=== PATIENT | female | born 1995 | race Caucasian/White ===

== ENCOUNTER 2017-05-04 07:59 | Emergency (ER) | payer MEDICAID ==
[2017-05-04] MEDS ORDERED: KETOROLAC TROMETHAMINE INJ/PF 30 MG/1 ML SDV IV ONE (08:17)
[2017-05-04] MEDS ORDERED: NORMAL SALINE 1000 ML 1,000 ML IV ONE (08:17)
--- NOTE | 2017-05-04 08:18 | ER Document Report ---
ED GI/ - General Chief Complaint: Abdominal Pain Stated Complaint: ABDOMINAL PAIN Time Seen by Provider: 05/04/17 08:17 Mode of Arrival: Ambulatory Information source: Patient Notes: Pt is a 21 year old female with Lupus who presents to the ER today for possible flare of lupus. She states that she has been nauseas for 3 months without vomiting until today. She woke up this morning and vomited brown fluid. States she had some upper abdominal pain in the center only right before and after vomiting but it is resolved now. She also complains of headache to the front of her forehead only that usually indicates a lupus flare. She denies diarrhea fever, chills, dizziness, blurred vision, numbness or tingling, weakness anywhere, hx of gerd, stomach ulcers or pancreatitis. TRAVEL OUTSIDE OF THE [place] IN LAST 30 DAYS: No - Related Data Allergies/Adverse Reactions: aspirin Allergy (Verified 05/04/17 09:11) Past Medical History - General Information source: Patient - Social History Smoking Status: Never Smoker Family History: Reviewed & Not Pertinent Patient has suicidal ideation: No Patient has homicidal ideation: No Renal/ Medical History: Denies: Hx Peritoneal Dialysis Review of Systems - Review of Systems Constitutional: No symptoms reported EENT: No symptoms reported Cardiovascular: No symptoms reported Respiratory: No symptoms reported Gastrointestinal: See HPI Genitourinary: No symptoms reported Female Genitourinary: No symptoms reported Musculoskeletal: No symptoms reported Skin: No symptoms reported Hematologic/Lymphatic: No symptoms reported Neurological/Psychological: See HPI Physical Exam - Vital signs Vitals: Temp Pulse Resp BP Pulse Ox 98.3 F 80 14 147/103 H 100 05/04/17 08:01 05/04/17 08:01 05/04/17 08:01 05/04/17 08:01 05/04/17 08:01 - Notes Notes: PHYSICAL EXAMINATION: GENERAL: Well-appearing and in no acute distress. HEAD: Atraumatic, normocephalic. EYES: Pupils equal round and reactive to light, extraocular movements intact, sclera anicteric, conjunctiva are normal. ENT: ear canals without erythema or foreign body, TMs pearly castro with good bony landmarks, nares patent, oropharynx clear without exudates. Moist mucous membranes. NECK: Normal range of motion, supple without lymphadenopathy LUNGS: CTAB and equal. No wheezes rales or rhonchi. HEART: Regular rate and rhythm without murmurs ABDOMEN: Soft, no tenderness. No guarding, no rebound BACK: no vertebral tenderness, normal ROM GI/: no CVA tenderness EXTREMITIES: Normal range of motion, no pitting edema. No cyanosis. NEUROLOGICAL: Cranial nerves grossly intact. Normal sensory/motor exams. PSYCH: Normal mood, normal affect. SKIN: Warm, Dry, normal turgor, no rashes or lesions noted Course - Re-evaluation Re-evalutation: 05/04/17 11:42 physical exam completely benign, pt feels better after iv fluids and zofran, medications for headache, her visit here has also been benign, no vomiting at all, keeps saying her symptoms are resolved or gone completely since being here in ER. test negative. 05/04/17 11:44 - Vital Signs Vital signs: Temp Pulse Resp BP Pulse Ox 97.7 F 68 18 128/80 H 100 05/04/17 11:59 05/04/17 11:59 05/04/17 11:59 05/04/17 11:59 05/04/17 11:59 - Laboratory Result Diagrams: 05/04/17 08:57 05/04/17 08:57 Laboratory results interpreted by me: 05/04/17 05/04/17 08:57 08:57 RDW 14.2 H ALT 58 H Discharge - Discharge Clinical Impression: Nausea Abdominal pain Qualifiers: Abdominal location: epigastric Qualified Code(s): R10.13 - Epigastric pain Headache Qualifiers: Headache type: unspecified Headache chronicity pattern: acute headache Intractability: not intractable Qualified Code(s): R51 - Headache Condition: Stable Disposition: HOME, SELF-CARE Instructions: Antinausea Medication ([facility]) Additional Instructions: Return immediately for any new or worsening symptoms. Follow up with primary care provider, call tomorrow to make followup appointment. Prescriptions: Omeprazole Magnesium [Prilosec Otc] 20 mg PO DAILY #14 tablet. Ondansetron [Zofran Odt 4 mg Tablet] 1 - 2 tab PO Q4H PRN #15 tab.rapdis PRN Reason: For Nausea/Vomiting Sucralfate [Carafate 1 gm Tablet] 1 gm PO ACHS #40 tablet Forms: Return to Work Referrals: STACY SERRA MD [Primary Care Provider] - Follow up as needed
[2017-05-04] MEDS ORDERED: ONDANSETRON HCL INJ/PF 4 MG/2 ML SDV IV ONE (08:27)
[2017-05-04] MEDS ORDERED: FAMOTIDINE 20 MG TABLET PO ONE (08:27)
[2017-05-04 09:08] LABS: ABSOLUTE BASOPHILS # (AUTO) 0.1 10^3/uL (0.0-0.2); ABSOLUTE MONOCYTES (AUTO) 0.5 10^3/uL (0.1-1.4); ABSOLUTE NEUT (AUTO) 5.7 10^3/uL (1.7-8.2); BASOPHILS % (AUTO) 0.7 % (0-2); EOSINOPHILS % (AUTO) 0.6 % (0-6); HEMATOCRIT 42.8 % (36.0-47.0); HEMOGLOBIN 14.2 g/dL (12.0-15.5); HGB HCT DIFFERENCE -0.2; LYMPHOCYTES % (AUTO) 23.8 % (13-45); MEAN CORPUSCULAR HEMOGLOBIN 29.3 pg (27.0-33.4); MEAN CORPUSCULAR HGB CONC 33.1 g/dL (32.0-36.0); MEAN CORPUSCULAR VOLUME 88 fl (80-97); MONOCYTES % (AUTO) 5.8 % (3-13); RED BLOOD COUNT 4.84 10^6/uL (3.72-5.28); RED CELL DISTRIBUTION WIDTH 14.2 % (11.5-14.0); SEGMENTED NEUTROPHILS % (AUTO) 69.1 % (42-78); WHITE BLOOD COUNT 8.3 10^3/uL (4.0-10.5)
[2017-05-04 09:28] LABS: ALANINE AMINOTRANSFERASE 58 U/L (9-52); ALBUMIN 4.5 g/dL (3.5-5.0); ALKALINE PHOSPHATASE 81 U/L (38-126); ANION GAP 12 (5-19); ASPARTATE AMINO TRANSFERASE 25 U/L (14-36); BILIRUBIN,DIRECT 0.3 mg/dL (0.0-0.4); BILIRUBIN,TOTAL 0.5 mg/dL (0.2-1.3); BLOOD UREA NITROGEN 7 mg/dL (7-20); CALCIUM 9.6 mg/dL (8.4-10.2); CARBON DIOXIDE 24 mmol/L (22-30); CHLORIDE 107 mmol/L (98-107); GLUCOSE 96 mg/dL (75-110); LIPASE 128.8 U/L (23-300); POTASSIUM 4.7 mmol/L (3.6-5.0); SODIUM 143.3 mmol/L (137-145); TOTAL PROTEIN 7.6 g/dL (6.3-8.2)
[2017-05-04 11:55] LABS: APPEARANCE,URINE CLEAR; BILIRUBIN,URINE NEGATIVE (NEGATIVE); GLUCOSE, URINE NEGATIVE (NEGATIVE); KETONES,URINE NEGATIVE (NEGATIVE); LEUKOCYTE ESTERASE,URINE NEGATIVE (NEGATIVE); NITRITE,URINE NEGATIVE (NEGATIVE); PROTEIN,URINE NEGATIVE (NEGATIVE); URINE SPECIFIC GRAVITY 1.012; UROBILINOGEN,URINE NEGATIVE mg/dL (<2.0)
[2017-05-04 12:09] VITALS: BP 128/80
== END 2017-05-04 12:00 | disposition home or self-care (01) ==
LOC: ER 07:59
DX: R11.0 Nausea (principal); R10.13 Epigastric pain; R51 Headache; Z88.6 Allergy status to analgesic agent
CPT/HCPCS: 99284; 96361; 96374; 96375; 36415; 83690; 84703; 85025; 81025; 80053; 81001; J1885; J2405; J7030

== ENCOUNTER 2019-07-05 21:13 | Inpatient (IN) | payer MEDICAID ==
[2019-07-05] MEDS ORDERED: RINGERS SOLUTION,LACTATED 300 ML IV ONE (21:22)
[2019-07-05] MEDS ORDERED: RINGERS SOLUTION,LACTATED 1,000 ML IV PRN (21:22)
[2019-07-05] MEDS ORDERED: DINOPROSTONE 10 MG VAGINAL INSERT.SR PV ONE (21:22)
[2019-07-05] MEDS ORDERED: OXYTOCIN/NORMAL SALINE 20 UNIT/1,000 ML RTUINJ IV PRN (21:22)
[2019-07-05] MEDS ORDERED: ZOLPIDEM TARTRATE 5 MG TABLET PO PRN (21:22)
[2019-07-05] MEDS ORDERED: ACETAMINOPHEN 325 MG TABLET PO PRN (21:22)
[2019-07-05] MEDS ORDERED: MAG HYDROX/AL HYDROX/SIMETH SUSP 30 ML UDCUP PO PRN (21:22)
[2019-07-05 21:55] LABS: ABSOLUTE LYMPHOCYTES (AUTO) 2.1 10^3/uL (0.5-4.7); ABSOLUTE MONOCYTES (AUTO) 0.6 10^3/uL (0.1-1.4); ABSOLUTE NEUT (AUTO) 9.1 10^3/uL (1.7-8.2); BASOPHILS % (AUTO) 0.3 % (0-2); EOSINOPHILS % (AUTO) 0.2 % (0-6); HEMATOCRIT 35.7 % (36.0-47.0); HEMOGLOBIN 12.5 g/dL (12.0-15.5); LYMPHOCYTES % (AUTO) 17.5 % (13-45); MEAN CORPUSCULAR HEMOGLOBIN 32.5 pg (27.0-33.4); MEAN CORPUSCULAR HGB CONC 35.2 g/dL (32.0-36.0); MEAN CORPUSCULAR VOLUME 92 fl (80-97); PLATELET COUNT 200 10^3/uL (150-450); RED BLOOD COUNT 3.86 10^6/uL (3.72-5.28); TOTAL CELLS COUNTED % (AUTO) 100 %; WHITE BLOOD COUNT 11.8 10^3/uL (4.0-10.5)
[2019-07-05 22:01] LABS: APPEARANCE,URINE SLIGHTLY-CLOUDY; BILIRUBIN,URINE NEGATIVE (NEGATIVE); COLOR,URINE YELLOW; GLUCOSE, URINE NEGATIVE (NEGATIVE); KETONES,URINE NEGATIVE (NEGATIVE); LEUKOCYTE ESTERASE,URINE LARGE (NEGATIVE); NITRITE,URINE NEGATIVE (NEGATIVE); PROTEIN,URINE NEGATIVE (NEGATIVE); URINE SPECIFIC GRAVITY 1.018; UROBILINOGEN,URINE NEGATIVE mg/dL (<2.0)
[2019-07-05] MEDS ORDERED: DINOPROSTONE 10 MG VAGINAL INSERT.SR ONE (22:08)
[2019-07-05 22:18] LABS: URINE AMPHETAMINES SCREEN NEGATIVE; URINE BARBITURATES SCREEN NEGATIVE; URINE BENZODIAZEPINES SCREEN NEGATIVE; URINE COCAINE SCREEN NEGATIVE; URINE MARIJUANA (THC) SCREEN NEGATIVE; URINE METHADONE SCREEN NEGATIVE; URINE PHENCYCLIDINE SCREEN NEGATIVE
[2019-07-06] MEDS ORDERED: ZOLPIDEM TARTRATE 5 MG TABLET PO PRN ×2 (01:34→20:45)
[2019-07-06] MEDS ORDERED: ZOLPIDEM TARTRATE 5 MG TABLET ONE (01:36)
[2019-07-06] MEDS ORDERED: LIDOCAINE 1% INJ-PF (10 MG/ML) 30 ML SDV ONE (11:24)
[2019-07-06] MEDS ORDERED: MISOPROSTOL 0.2 MG TABLET ONE (11:24)
[2019-07-06] MEDS ORDERED: OXYTOCIN/NORMAL SALINE 20 UNIT/1,000 ML RTUINJ ONE (11:24)
[2019-07-06] MEDS ORDERED: ONDANSETRON HCL INJ/PF 4 MG/2 ML SDV IV ONE (11:59)
[2019-07-06] MEDS ORDERED: ONDANSETRON HCL INJ/PF 4 MG/2 ML SDV ONE (12:19)
[2019-07-06] MEDS ORDERED: MORPHINE SULFATE 10 MG/ML INJ ONE (13:34)
[2019-07-06] MEDS ORDERED: PENICILLIN G-K 5 MILLION UNIT VIAL ONE (15:30)
[2019-07-06] MEDS ORDERED: DIBUCAINE 1% OINTMENT 56 GM TP PRN (20:45)
[2019-07-06] MEDS ORDERED: OXYTOCIN/NORMAL SALINE 20 UNIT/1,000 ML RTUINJ IV PRN (20:45)
[2019-07-06] MEDS ORDERED: MEASLES,MUMPS&RUBELLA VACC/PF 0.5 ML VIAL SUBCUT PRN (20:45)
[2019-07-06] MEDS ORDERED: ACETAMINOPHEN WITH CODEINE #3 TABLET PO PRN ×2 (20:45)
[2019-07-06] MEDS ORDERED: BENZOCAINE/MENTHOL AEROSOL SPRAY 56 ML TOP PRN (20:45)
[2019-07-06] MEDS ORDERED: DIPH/PERTUSS(ACELL)/TETANUS VAC/PF 0.5 ML SYR (>=10YO) IM PRN (20:45)
[2019-07-06] MEDS: IBUPROFEN 800 MG TABLET PO SCH (21:52)
[2019-07-07] MEDS: IBUPROFEN 800 MG TABLET PO SCH ×3 (06:59→22:35)
[2019-07-07] MEDS: FERROUS SULFATE 325 MG TABLET PO SCH ×3 (07:37→17:52)
[2019-07-07] MEDS: DOCUSATE SODIUM 100 MG CAPSULE PO SCH ×3 (07:37→17:52)
[2019-07-07 07:57] LABS: HEMATOCRIT 35.2 % (36.0-47.0); HEMOGLOBIN 12.1 g/dL (12.0-15.5); MEAN CORPUSCULAR HEMOGLOBIN 32.1 pg (27.0-33.4); MEAN CORPUSCULAR HGB CONC 34.3 g/dL (32.0-36.0); MEAN CORPUSCULAR VOLUME 94 fl (80-97); PLATELET COUNT 173 10^3/uL (150-450); RED BLOOD COUNT 3.76 10^6/uL (3.72-5.28); RED CELL DISTRIBUTION WIDTH 12.8 % (11.5-14.0); WHITE BLOOD COUNT 16.9 10^3/uL (4.0-10.5)
[2019-07-07] MEDS: PRENATAL VITAMIN W DHA CAPSULE PO SCH (10:45)
[2019-07-07] MEDS: SENNOSIDES/DOCUSATE 8.6-50 MG 1 EACH TABLET PO SCH (10:45)
--- NOTE | 2019-07-07 11:46 | PDOC PROGRESS REPORT ---
Subjective-OB Progress Note for:: 07/07/19 Subjective: Pt resting quietly, no complaints. She reports light bleeding, reg diet and voiding without difficulty. Physical Exam (OB) Vital Signs: Temp Pulse Resp BP Pulse Ox 98.2 F 66 16 107/75 100 07/07/19 08:18 07/07/19 08:18 07/07/19 08:18 07/07/19 08:18 07/07/19 08:18 Intake & Output 07/06/19 07/07/19 07/08/19 06:59 06:59 06:59 Intake Total 1000 Balance 1000 Weight 96.615 kg - Lochia Lochia Amount: Small 10-25 ml Lochia Color: Rubra/Red - Abdomen Description: Soft Hernia Present: No Fundal Description: Firm, Midline Fundal Height: u/u - u/2 Objective-Diagnostic Laboratory: 07/07/19 07:34 07/07/19 07/07/19 07:34 07:34 WBC 16.9 H RBC 3.76 Hgb 12.1 Hct 35.2 L MCV 94 MCH 32.1 MCHC 34.3 RDW 12.8 Plt Count 173 Blood Type O NEGATIVE Assessment and Plan(PN) - Assessment and Plan (1) Vaginal delivery Is this a current diagnosis for this admission?: Yes - Time Spent with Patient Time with patient: Less than 15 minutes Medications reviewed and adjusted accordingly: Yes - Disposition Anticipated Discharge: Home Within: within 24 hours
[2019-07-08 06:05] LABS: ABSOLUTE BASOPHILS # (AUTO) 0.1 10^3/uL (0.0-0.2); ABSOLUTE EOSINOPHILS # (AUTO) 0.1 10^3/uL (0.0-0.6); ABSOLUTE LYMPHOCYTES (AUTO) 2.8 10^3/uL (0.5-4.7); ABSOLUTE MONOCYTES (AUTO) 0.6 10^3/uL (0.1-1.4); ABSOLUTE NEUT (AUTO) 7.3 10^3/uL (1.7-8.2); BASOPHILS % (AUTO) 0.5 % (0-2); EOSINOPHILS % (AUTO) 0.6 % (0-6); HEMATOCRIT 30.3 % (36.0-47.0); HEMOGLOBIN 10.6 g/dL (12.0-15.5); LYMPHOCYTES % (AUTO) 26.1 % (13-45); MEAN CORPUSCULAR HGB CONC 34.9 g/dL (32.0-36.0); MEAN CORPUSCULAR VOLUME 94 fl (80-97); MONOCYTES % (AUTO) 5.5 % (3-13); PLATELET COUNT 144 10^3/uL (150-450); RED BLOOD COUNT 3.21 10^6/uL (3.72-5.28); RED CELL DISTRIBUTION WIDTH 13.1 % (11.5-14.0); SEGMENTED NEUTROPHILS % (AUTO) 67.3 % (42-78); TOTAL CELLS COUNTED % (AUTO) 100 %; WHITE BLOOD COUNT 10.8 10^3/uL (4.0-10.5)
[2019-07-08] MEDS: IBUPROFEN 800 MG TABLET PO SCH ×2 (06:05→13:53)
[2019-07-08] MEDS: DOCUSATE SODIUM 100 MG CAPSULE PO SCH ×2 (09:29→17:40)
[2019-07-08] MEDS: SENNOSIDES/DOCUSATE 8.6-50 MG 1 EACH TABLET PO SCH (09:29)
[2019-07-08] MEDS: PRENATAL VITAMIN W DHA CAPSULE PO SCH (09:29)
[2019-07-08] MEDS: FERROUS SULFATE 325 MG TABLET PO SCH ×2 (09:29→17:40)
--- NOTE | 2019-07-08 11:39 | PDOC DISCHARGE SUMMARY ---
Final Diagnosis Discharge Date: 07/08/19 - Final Diagnosis (1) Vaginal delivery Is this a current diagnosis for this admission?: Yes Discharge Data - Discharge Medication Home Medications: Hydroxychloroquine Sulfate [Plaquenil] 1 tab PO BID 07/05/19 Vits96/Iron Fum/Folic [ Tablet] 1 tab PO DAILY 07/05/19 Reason(s) for Admission: Induction of Labor Procedures: NST Intrapartum Procedure(s): Spontaneous Vaginal Delivery Complication(s): Laceration-Periurethral Laceration-Degree: 1st - Diagnosis Test Laboratory: Temp Pulse Resp BP Pulse Ox 98.2 F 66 16 107/75 100 07/07/19 08:18 07/07/19 08:18 07/07/19 08:18 07/07/19 08:18 07/07/19 08:18 07/05/19 07/05/19 07/07/19 21:35 21:42 07:34 RBC 3.86 3.76 Hgb 12.5 12.1 Hct 35.7 L 35.2 L Urine Opiates Screen NEGATIVE - Discharge information/Instructions Discharge Activity: Balance Activity w/Rest, Pelvic Rest Discharge Diet: Regular Disposition: HOME, SELF-CARE Follow up with: [facility] in: 4, Weeks
[2019-07-08 12:49] VITALS: BP 114/63
--- NOTE | 2019-07-30 14:59 | Delivery Summary ---
Del Sum A-C Datetime Report Generated by CPN: 07/30/2019 14:59 DELIVERY PERSONNEL DELIVERY PERSONNEL: [id number] Delivery Doctor:: Rupali Ludwig CNM Labor and Delivery Nurse:: Miranda Patrick RN Mosaicist:: Jackiecatie Banks, LAV[place] Driver Medic/WINDOW SHADE [employer]UTTER [employer] MOUNTER: Salina Jay, ST MATERNAL INFORMATION Delivery Anesthesia: None Medications After Delivery: Pitocin Bolus-Please Comment Meds After Delivery Comment: Pitocin 20 units in 1 L NS bolusing per order Delivery QBL: 100 Maternal Complications: None Provider Comments: male over intact perineum, SROM at delivery with clear fluid. CHAYITO, posterior shoulder delivered easily, then ant shoulder followed by body and cord. Infant vigorous, to mothers abd. Cord clamped and cut after 2 min. Placenta spont via hussein with minimal bleeding. Apgars 9, 10. Periurethral lac repaired as above. Mother and stable. LABOR SUMMARY EDC: 07/10/2019 00:00 No. Babies in Womb: 1 Attempted: No Labor Anesthesia: None LABOR INFORMATION Reason for Induction: Other Reason for Induction- Other: lupus Onset of Labor: 07/06/2019 14:35 Complete Dilatation: 07/06/2019 16:27 Cervical Ripening Agents: Cervidil Oxytocin: Induction Group B Beta Strep: positive Antibiotics # of Doses: 1 Antibiotics Time of Last Dose: 1529 Name of Antibiotic Given: PCN Steroids Given: None Reason Steroids Not Administered: Not Applicable MEMBRANES Membranes Rupture Method: Spontaneous Membranes Rupture Method: Spontaneous Rupture of Membranes: 07/06/2019 16:41 Length of Rupture (hr): 0.00 Amniotic Fluid Color: Clear Amniotic Fluid Color: Clear Amniotic Fluid Amount: Large Amniotic Fluid Amount: None Amniotic Fluid Odor: Normal Amniotic Fluid Odor: Normal STAGES OF LABOR Stage 1 hr: 1 Stage 1 min: 52 Stage 2 hr: 0 Stage 2 min: 14 Stage 3 hr: 0 Stage 3 min: 6 Total Time in Labor hr: 2 Total Time in Labor min: 12 VAGINAL DELIVERY Episiotomy: None Episiotomy: None Laceration #1: Periurethral Laceration #1: Periurethral Laceration Extension #1: First Degree Laceration Extension #1: First Degree Laceration Repair: Yes Laceration Repair Note: one stitch 3.0 Chromic Sponge Count Correct: Yes Sharps Count Correct: Yes CSECTION DELIVERY Primary Indication: N/A Secondary Indication: N/A CSection Incidence: N/A Labor: N/A Elective: N/A CSection Incision: N/A BABY A INFORMATION Delivery Date/Time: 07/06/2019 16:41 Method of Delivery: Vaginal Method of Delivery: Vaginal Born in Route : No : N/A Forceps: N/A Vacuum Extraction: N/A Shoulder Dystocia : No PRESENTATION/POSITION BABY A Presentation: Cephalic Cephalic Presentation: Vertex Vertex Position: Left Occipital Anterior Breech Presentation: N/A PLACENTA INFORMATION BABY A Placenta Delivery Time : 07/06/2019 16:47 Placenta Method of Delivery: Spontaneous Placenta Method of Delivery: Spontaneous Placenta Status: Delivered SCORES BABY A Heart Rate 1 min: >100 bpm Resp Effort 1 min: Good Cry Reflex Irritability 1 min: Cough or Sneeze or Pulls Away Muscle Tone 1 min: Active Motion Color 1 min: Body [place], Extremities Blue Resuscitation Effort 1 min: Tactile Stimulation SCORE 1 MIN: 9 Heart Rate 5 min: >100 bpm Resp Effort 5 min: Good Cry Reflex Irritability 5 min: Cough or Sneeze or Pulls Away Muscle Tone 5 min: Active Motion Color 5 min: Completely [place] Resuscitation Effort 5 min: N/A; Tactile Stimulation SCORE 5 MIN: 10 INFORMATION BABY A Gestational Age at Delivery: 39.3 Gestational Status: Full Term- 39- 40.6 Weeks Outcome : Liveborn Infant Condition : Stable Infant Sex: Male Infant Sex: Male IDENTIFICATION BABY A Verification Date/Time: 07/06/2019 17:48 ID Band Number: [id number] Mother's Name Verified: Yes Infant RN Verifying : Colette Patrick, RN, B. Perez, RN WEIGHT/LENGTH BABY A Infant Birthweight (gm): 3151 Weight (lb): 6 Weight (oz): 15 Length (in): 20.00 Length (cm): 50.80 CORD INFORMATION BABY A No. Cord Vessels: 3 Nuchal Cord : N/A Cord Blood Taken: Yes-For Eval (Mom's Blood Type - or O+) Suction: None ASSESSMENT BABY A Complications: None Physical Findings at Delivery: Within Normal Limits Respirations: Appears Normal Skin to Skin: Yes Skin to Skin: Yes Skin to Skin Time (min): 60 Infant Care By: D. Jocelyn, RN Transferred To: Remains with Mother BABY B INFORMATION : N/A SIGNATURES Assignment: Hailey Zambrano MD Signature: with User ID: [email or web address] : with User ID: [email or web address] : I was personally available for consultation and serving as supervising physician for the MLP.
--- NOTE | 2019-08-02 14:04 | Admission Physical ---
Datetime Report Generated by CPN: 08/02/2019 14:04 CURRENT ADMISSION Chief Complaint: Uterine Contractions Indication for Induction: Not Applicable Admit Impression : Term, Intrauterine Admit Plan: Initiate Labor Protocol ALLERGIES Medication Allergies: Yes Medication Allergies: aspirin (07/06/2019) Medication Allergies: aspirin (07/05/2019) Medication Allergies: aspirin (05/04/2017) Latex: No Latex Allergies Food Allergies: none Environmental Allergies: none OBSTETRICAL HISTORY EDC: 07/10/2019 00:00 : 1 Para: 0 Term: 0 : 0 SAB: 0 IAB: 0 Ectopic: 0 Livin Cesareans: 0 VBACs: 0 Multiple Births: 0 Gestational Diabetes: No Rh Sensitization: No Incompetent Cervix: No ESPINOZA: No Infertility: No ART Treatment: No Uterine Anomaly: No IUGR: No Hx Previous C/S: No Macrosomia: No Hx Loss/Stillborn: No PIH: No Hx : No Placenta Previa/Abruption: No Depression/PP Depression: No PTL/PROM: No Post Hemorrhage: No Current Procedures: Ultrasound Obstetrical History Comments: G1 - current SEE RECORDS Alcohol: No Marijuana : No Cocaine: No Other Illicit Drugs: No Cigarettes: Former Smoker. [id number] MEDICAL HISTORY Diabetes: No Blood Transfusion: No Pulmonary Disease (Asthma, TB): No Breast Disease: Yes Hypertension: No Underwater Hunter Surgery: No Heart Disease: No Hosp/Surgery: Yes Autoimmune Disorder: Yes Anesthetic Complications: No Kidney Disease: No Abnormal Pap Smear: No Neuro/Epilepsy: No Psychiatric Disorders: No Other Medical Diseases: No Hepatitis/Liver Disease: No Significant Family History: No Varicosities/Phlebitis: No Trauma/Violence : No Thyroid Dysfunction: No Medical History Comments: tonsillectomy 2000, breast cyst removal 2013 lupus INFECTIOUS HISTORY Gonorrhea: No Genital Herpes: No Chlamydia: No Tuberculosis: No Syphilis: No Hepatitis: No HIV/AIDS Exposure: No Rash or Viral Illness: No HPV: No PHYSICAL EXAM General: Normal HEENT: Normal Neurologic: Normal Thyroid: Normal Heart: Normal Lungs: Normal Breast: Deferred Back: Normal Abdomen: Normal Genitourinary Exam: Normal Extremities: Normal DTRs: Normal Pelvic Type: Adequate FETUS A EGA: 39.5 Monitoring: External US PLANS FOR LABOR AND DELIVERY Labor and Delivery: None Pain Management: Natural; Epidural Feeding Preference: Breast Benefit of Breast Feed Discussed: Yes Circumcision: Yes INFORMED CONSENT Signature: with User ID: [email or web address]
== END 2019-07-08 18:30 | disposition home or self-care (01) | DRG 807 ==
LOC: LR 21:13 → 2S 07-06 20:07
PROVIDERS: ADMIT Obstetrics & Gynecology Gynecology; ATTEND Obstetrics & Gynecology Gynecology
PROC: 10E0XZZ Delivery of Products of Conception, External Approach (ICD-10-PCS; principal; 2019-07-06)
PROC: 0UQMXZZ Repair Vulva, External Approach (ICD-10-PCS; 2019-07-06)
PROC: 3E0234Z Introduction of Serum, Toxoid and Vaccine into Muscle, Percutaneous Approach (ICD-10-PCS; 2019-07-08)
DX: O99.113 Other diseases of the blood and blood-forming organs and certain disorders involving the immune mechanism complicating pregnancy, third trimester (principal); Z37.0 Single live birth; O26.893 Other specified pregnancy related conditions, third trimester; O99.824 Streptococcus B carrier state complicating childbirth; O71.82 Other specified trauma to perineum and vulva; Z67.41 Type O blood, Rh negative; M32.9 Systemic lupus erythematosus, unspecified; Z3A.39 39 weeks gestation of pregnancy; Z88.6 Allergy status to analgesic agent; Z87.891 Personal history of nicotine dependence
CPT/HCPCS: 36415; 80307; 81005; 85025; 85027; 85461; 86592; 86850; 86870; 86900; 86901; J2270; J2405; J2540; J2590; J2790; J3490